=== PATIENT | male | born 1945 | race Hispanic/Latino ===

== ENCOUNTER 2020-08-31 12:11 | Emergency (ER) | payer OTHER ==
[2020-08-31] MEDS ORDERED: KETOROLAC 60 MG VIAL (30MG/ML) ONE (12:28)
== END 2020-08-31 14:50 | disposition home or self-care (01) ==
LOC: EDH 12:11
DX: S22.32XA Fracture of one rib, left side, initial encounter for closed fracture (principal); S50.02XA Contusion of left elbow, initial encounter; L40.9 Psoriasis, unspecified; I10 Essential (primary) hypertension; Z72.0 Tobacco use; Z98.890 Other specified postprocedural states; W18.2XXA Fall in (into) shower or empty bathtub, initial encounter; Y93.89 Activity, other specified; Y92.091 Bathroom in other non-institutional residence as the place of occurrence of the external cause; Y99.8 Other external cause status
CPT/HCPCS: 71101; 73070; 99284; J1885